=== PATIENT | male | born 1980 | race Caucasian/White ===

== ENCOUNTER → 2024-04-10 | Outpatient (CLI) | payer OTHER, SELFPAY ==
--- NOTE | 2024-04-10 09:25 | RAD_ITS ---
HISTORY: RHEUMATOID ARTHRITIS. TECHNIQUE: XR Hand 2 Views. COMPARISON: None. FINDINGS: BONES : No acute fracture or cortical erosion identified. JOINTS: No dislocation. Joint spaces maintained. RAD/Hand 2 Views IMPRESSION: Unremarkable left hand . Electronically Signed: Nazanin Bonilla MD at 11:48 EDT ,
--- NOTE | 2024-04-10 09:25 | RAD_ITS ---
INDICATION: RHEUMATOID ARTHRITIS EXAMINATION/TECHNIQUE: X-RAY - RIGHT XR Hand 2 Views 2 VIEWS COMPARISON: No relevant prior comparison study available FINDINGS: SOFT TISSUES: No soft tissue swelling or gas. No radiopaque foreign body. BONES/JOINTS: No acute fracture or subluxation.. Normal alignment. Preservation of the joint space.. No sclerotic or destructive changes observed. RAD/Hand 2 Views IMPRESSION: Normal appearance of the right hand. No erosive changes. Normal alignment. Electronically Signed: Mickey Perez MD at 7:06 EDT ,
[2024-04-10 11:51] LABS: Rheumatoid Factor < 10.0 IU/mL (<15)
== END | disposition home or self-care (01) ==
LOC: LAB 09:06
PROVIDERS: Referring Provider Chiropractor; Visit Provider Chiropractor
DX: M06.9 Rheumatoid arthritis, unspecified (principal)
CPT/HCPCS: 36415; 73120; 86431